=== PATIENT | female | born 1985 | race Caucasian/White ===

== ENCOUNTER 2020-08-01 08:54 | Outpatient (REF) | payer OTHER, SELFPAY | END 2020-08-01 08:55 | disposition home or self-care (01) | LOC: HO.LAB 08:54 | PROVIDERS: Visit Provider Internal Medicine | DX: Z20.822 Contact with and (suspected) exposure to COVID-19 (principal) | CPT/HCPCS: C9803; U0003; U0005 ==

== ENCOUNTER 2025-01-03 13:44 | Inpatient (IN) | payer OTHER, SELFPAY ==
--- NOTE | 2025-01-03 13:49 | ED.GENADULT ---
HPI - General Adult General Chief complaint: Psychiatric Symptoms Stated complaint: crisis Time Seen by Provider: 01/03/25 14:08 Source: patient, RN notes reviewed and old records reviewed Mode of arrival: ambulatory History of Present Illness ED Provider: Nell Schaefer PA-C HPI narrative: 39-year-old female with past medical history dementia, presenting to the ED complaining of increased depression with suicidal ideations and attempt last night. States she bought a large bottle of liquor and 100 pills of extra-strength Tylenol and was driving around with intent to overdose however fell asleep/passed out secondary to EtOH use and did not take any Tylenol. Family found patient in vehicle by using the icloud and convinced her to come to the ED. Denies any injury, HI, auditory/visual hallucinations. States she had her son prematurely last year spent a lot of time in the NICU, struggled with depression, and was having issues with her partner which prompted her to go back to work early. States she was dealing with depression, work, raising children and everything became overwhelming. Related Data Home Medications ?Medication ?Instructions ?Recorded ?Confirmed No Known Home Meds 01/03/25 01/03/25 Allergies Allergy/AdvReac Type Severity Reaction Status Date / Time morphine (MORPHINE) Allergy Mild HIVES Verified 01/03/25 13:50 Review of Systems Review of Systems: Yes all other systems are reviewed and are negative Constitutional: Constitutional: Reports as per HPI Neurologic: Denies Abnormal speech present [facility] Past Medical History Attestation statement: The following information was validated with the patient. Source: old records reviewed Social History Social History Household Members: Children Do you presently have visiting nurse or other home services: No Alcohol intake: current Alcohol type: hard liquor Patient Tobacco Use Status: Never used Tobacco Smoked in Last 30 Days: No Use of substances other than those prescribed or required for medical reasons: No Currently Displaying Signs/Symptoms of Drug Intoxication Withdrawal: No Advance Directives: No Advance Directives Information Provided: No Do you have thoughts of harming others: None Do you have a plan to hurt others: No Plan Recently lost weight without trying: No Eating poorly because of decreased appetite: Yes Nutrition Risks: No Nutritional Risk Patient : No Physical Exam ED Vital Signs: Vital Signs - 24 hr 01/03/25 13:50 01/03/25 14:00 01/03/25 21:14 Temperature 96.9 F 96.9 F 97.5 F Pulse Rate 87 85 Respiratory Rate 16 16 18 Blood Pressure 121/56 L 121/56 L 123/62 Pulse Oximetry 98 100 Oxygen Delivery Method Room Air Room Air 01/03/25 22:00 01/04/25 05:59 Temperature Pulse Rate Respiratory Rate 18 18 Blood Pressure Pulse Oximetry Oxygen Delivery Method BMI result Body Mass Index 37.7 Const General: cooperative, no acute distress, alert and awake Orientation/consciousness: patient oriented x3 Limitations: no limitations HENMT Head: Yes normal to inspection and Yes atraumatic Ears: hearing grossly normal bilaterally General nose exam: Normal external nose present Face and sinus: Yes normal facial exam Eyes General: appearance normal, both eyes and all related structures EOM: EOMs intact bilaterally Neck Neck: Yes normal visual inspection and Yes no meningeal signs Resp Effort & Inspection: normal respiratory effort and no respiratory distress Auscultation: clear to auscultation bilaterally Cardio Rate: regular rate Heart sounds: S1 normal heart sound present and S2 normal heart sound present GI Inspection: Yes normal to inspection Palpation (GI): Soft to palpation, nontender, no guarding and not rigid General: Yes no CVA tenderness Back/Spine/Pelvis Back: no CVA tenderness Skin Rashes: no rashes Wounds: no wounds Neuro General: patient oriented x3, tone normal, moves all extremities, no meningeal signs and CN's II-XI intact bilaterally Cranial nerves: Yes CN's II-XII intact bilaterally Cognition (Neuro): normal cognition Speech: No Abnormal speech present Gait exam (Neuro): Normal gait present Extrem General: Yes normal to inspection Psych Thought content: Suicidality present and Depressive thoughts present Course Course Course Narrative: Rapid medical examination performed in triage by Phoebe Chacko PA-C. Patient is a 39 year old assigned female at presenting to the emergency department after considering killing herself last night and being stopped by her family. Patient states that she is much more depressed and continues to have suicidal ideation. Detailed physical exam and review of systems are deferred to the application software engineer. android software engineer aware. -potassium mildly low at 3.2 > p.o. repletion ordered -labs otherwise reassuring. Tox screen positive for THC. Physician observation initiated at 1542 as patient needs more time to be evaluated by crisis -UA contaminated. Will wait on culture prior to initiating antibiotics. -1700--ED care transferred to [facility] pending CARE team eval Reevaluation(s) Reevaluation #1: Patient is seen with the care team and will be a bed search for inpatient psychiatric care. She is on a section 12 Time: 18:53 Reevaluation #2: Time: 06:28 Date: 01/04/25 Provider: Renny Hubbard MD Patient in physician observation for psychiatric evaluation.? No acute events reported overnight. No current complaints. VS stable.? Patient is in bed search status/pending CARE team evaluation. Will continue to monitor. Reevaluation #3: 01/04/25 1230pm. physician observation ended patient admitted inpatient. JUAN Medications Administered Generic Name Dose Route Start Last Admin Trade Name Freq PRN Reason Stop Dose Admin Folic Acid 1 mg 01/04/25 12:50 01/05/25 08:28 Folic Acid 1 Mg Tablet PO 1 mg DAILY ROMEL Administration Hydroxyzine HCl 25 mg 01/04/25 12:42 01/04/25 20:26 Hydroxyzine Hcl 25 Mg Tablet PO 25 mg Q6H PRN Administration mild anxiety Thiamine HCl 100 mg 01/04/25 12:50 01/05/25 08:28 Thiamine Hcl 100 Mg Tablet PO 100 mg DAILY ROMEL Administration Trazodone HCl 50 mg 01/04/25 12:42 01/04/25 20:25 Trazodone Hcl 50 Mg Tablet PO 50 mg BEDTIME [id number] PRN Administration Insomnia Discontinued Medications Generic Name Dose Route Start Last Admin Trade Name Freq PRN Reason Stop Dose Admin Influenza Virus Vaccine 0.5 ml 01/04/25 15:54 01/04/25 16:21 Flu Vacc [id number](6mo Up)/Pf 0.5 Ml Syringe IM 01/04/25 15:55 Not Given .ONCE ONE Potassium Chloride 40 meq 01/03/25 15:40 01/03/25 20:46 Potassium Chloride Packet 20 Meq Packet PO 01/03/25 15:41 40 meq ONCE ONE Administration Medical Decision Making Medical Decision Making MDM Narrative: 39-year-old female with past medical history dementia, presenting to the ED complaining of increased depression with suicidal ideations and attempt last night. On exam vital signs stable, NAD, nontoxic appearing, physical exam as noted above. Patient is suicidal with attempt last night. Rule out organic causes. Rule out metabolic abnormalities Plan: Labs, tox screen, CARE team consult Please refer to course for remaining clinical decision making, interpretation of labs/imaging results, and discussions with consultants and/or family members. Differential Diagnosis Differential Diagnoses: The differential diagnosis associated with the presentation includes As above Admission/Observation Consideration of admission/observation: Escalation of care including admission/observation considered Consult Healthcare Provider Management of the patient was discussed with: Behavioral Health Provider Lab Data [facility] Lab Attestation statement: I reviewed the patient's lab results. 01/03/25 14:46 01/05/25 07:47 Labs: Lab Results 01/03/25 01/03/25 Range/Units 14:28 14:46 WBC 9.5 (4.8-10.8) X10*3/uL RBC 5.32 (4.20-5.50) X10*6/uL Hgb 15.3 (12.0-16.0) g/dl Hct 46.5 (37.0-47.0) % MCV 87.4 (80.0-98.0) fL MCH 28.8 (27.0-33.0) pg MCHC 32.9 (31.0-35.0) g/dl RDW 13.4 (11.0-16.0) % Plt Count 245 (160-400) X10*3/uL MPV 10.5 (9.4-12.3) fL Immature Gran % (Auto) 0.2 (0.0-0.4) % Neut % (Auto) 63.9 (45-73) % Lymph % (Auto) 28.5 (20-40) % [place] % (Auto) 5.1 (2-11) % Eos % (Auto) 1.6 (0-4) % Baso % (Auto) 0.7 (0-2) % Lymph # (Auto) 2.7 (1.2-4.9) X10*3/uL [place] # (Auto) 0.5 (0.1-1.2) X10*3/uL Eos # (Auto) 0.2 (0.0-0.4) X10*3/uL Baso # (Auto) 0.1 (0.0-0.2) X10*3/uL Abs Immat Gran (auto) 0.02 (0.00-0.03) X10*3/uL Absolute Neuts (auto) 6.0 (2.0-8.3) x10*3/uL Absolute Nucleated RBC 0.000 (0.0-0.012) X10*3/uL Nucleated RBC % (auto) 0.0 (0.0-0.2) /100WBC Sodium 141 (135-145) mmol/L Potassium 3.2 L (3.3-5.1) mmol/L Chloride 107 (96-108) mmol/L Carbon Dioxide 25 (22-29) mmol/L Anion Gap 12 (12-20) BUN 12 (9-16) mg/dL Creatinine 0.64 (0.5-1.4) mg/dL Estim Creat Clear Calc 118.4 Estimated GFR > 60 Random Glucose 132 H (60-115) mg/dL Calcium 9.0 (8.4-10.2) mg/dL Total Bilirubin 0.7 (0.0-1.0) mg/dL AST 22 (5-31) U/L ALT 49 H (0-31) U/L Alkaline Phosphatase 31 L (39-117) U/L Total Protein 6.9 (6.5-8.0) g/dL Albumin 4.3 (3.5-5.0) g/dL Urine Color Dark Yellow Urine Appearance Cloudy Urine pH 5.5 (5.0-9.0) Ur Specific [place] >= 1.030 H (1.005-1.025) Urine Protein 30 (1+) H (Neg-Trace) mg/dL Urine Glucose (UA) Negative (Negative) mg/dL Urine Ketones Trace (Negative) mg/dL Urine Blood Negative (Negative) Urine Nitrite Negative (Negative) Ur Leukocyte Esterase Trace H (Negative) Urine RBC 3-5 H (0-2) /HPF Urine WBC 6-10 H (0-5) /HPF Ur Squamous Epith Cells >20 (0-2) /HPF Urine Bacteria 4+ (None Seen) Hyaline Casts 3-5 (0-2) /LPF Urine Test NEGATIVE (NEGATIVE) Salicylates < 5.0 L (15-30) mg/dL Urine Opiates Screen Not Detected (Not Detect) Ur Buprenorphine Scrn Not Detected (Not Detect) ng/mL Ur Oxycodone Screen Not Detected (Not Detect) ng/mL Urine Methadone Screen Not Detected (Not Detect) ng/mL Urine Fentanyl Screen Not Detected (Not Detect) Acetaminophen < 3 (<30) mcg/mL Ur Barbiturates Screen Not Detected (Not Detect) Ur Phencyclidine Scrn Not Detected (Not Detect) Ur Amphetamines Screen Not Detected (Not Detect) U Benzodiazepines Scrn Not Detected (Not Detect) Urine Cocaine Screen Not Detected (Not Detect) U Marijuana (THC) Screen POSITIVE H (Not Detect) Ethyl Alcohol < 10 mg/dL Radiology Impression Discussion of test interpretation with radiology: I have reviewed the radiologist's reading. External Record Review External record reviewed: Inpatient record, Office record, Outpatient record, Prior outpatient labs, Prior outpatient radiology, Primary care record and Outside ED record Tests considered The following testing was considered but not selected: As above Prescription Management I considered prescription management with: Other Chronic Conditions Patient?s care impacted by: Other Social Determinants Patient?s care significantly limited by Social Determinants of Health including: Problems related to primary support group and Other Social Determinant of Health Discharge Plan Discharge Clinical Impression: Suicide attempt Patient Disposition: Admitted As Inpatient Interventions: Admission Worksheet (ED) Last Done: 01/04/25 12:54 Discharge Date/Time: 01/04/25 13:51
[2025-01-03 13:50] VITALS: BP 121/56; PULSE 87; RESP 16; TEMP 36.1; O2SAT 98; BMI 37.7
[2025-01-03 14:00] VITALS: BP 121/56; RESP 16; TEMP 36.1
[2025-01-03 14:40] LABS: Appearance Urine Cloudy; Glucose Urine UA Negative (Negative); PH 5.5 (5.0-9.0); Specific Gravity - Urine >= 1.030 (1.005-1.025); UMIC TRIGGER UA YES
[2025-01-03 14:41] LABS: UPreg QC Valid YES
[2025-01-03 14:47] LABS: Cannabinoid Screen Urine POSITIVE (Not Detect)
[2025-01-03 14:51] LABS: MANUAL DIFF FLAG NO
[2025-01-03 14:53] LABS: Hematocrit 46.5 % (37.0-47.0); Hemoglobin 15.3 g/dl (12.0-16.0); Imm Gran Abs Auto 0.02 X10*3/uL (0.00-0.03); Imm Gran Pct Auto 0.2 % (0.0-0.4); Lymphocytes Absolute Auto 2.7 X10*3/uL (1.2-4.9); Mean Corpuscular HGB Conc 32.9 g/dl (31.0-35.0); Mean Corpuscular Hemoglobin 28.8 pg (27.0-33.0); Mean Corpuscular Volume 87.4 fL (80.0-98.0); NRBC Abs Auto 0.000 X10*3/uL (0.0-0.012); NRBC Pct Auto 0.0 /100WBC (0.0-0.2); Platelet Count 245 X10*3/uL (160-400); Red Blood Count 5.32 X10*6/uL (4.20-5.50); White Blood Count 9.5 X10*3/uL (4.8-10.8)
[2025-01-03 15:12] LABS: Alanine Aminotransferase 49 U/L (0-31); Albumin Level 4.3 g/dL (3.5-5.0); Alkaline Phosphatase 31 U/L (39-117); Anion Gap 12 (12-20); Aspartate Amino Transferase 22 U/L (5-31); Blood Urea Nitrogen 12 mg/dL (9-16); Calcium 9.0 mg/dL (8.4-10.2); Carbon Dioxide 25 mmol/L (22-29); Chloride 107 mmol/L (96-108); Creatinine Clr Calc Pharmacy 118.4; Estimated Glomerular Filt Rate > 60; Potassium 3.2 mmol/L (3.3-5.1); Sodium 141 mmol/L (135-145); Total Protein 6.9 g/dL (6.5-8.0)
[2025-01-03 15:46] LABS: Acetaminophen LAB < 3 mcg/mL (<30); Salicylate < 5.0 mg/dL (15-30)
--- NOTE | 2025-01-03 17:40 | MHC.CARE ---
Patient evaluated by the CARE Team, she will require an inpatient psychiatric admission. Dr. Villatoro updated
--- OUTSIDE RECORDS SUMMARY | 2025-01-03 17:55 | XMS_ITS | Clinical Summary ---
Author Organization [address] Address [address] [place] [phone] Phone Care Team Providers Care Tool Builder Name Role Phone Shayne Carbone MD Primary Care Provider [phone] Allergies Active Allergy Reactions Criticality Noted Date Comments Morphine Other 06/27/2016 Medications hydrOXYzine HCL (ATARAX) 10 mg tablet Take 1 tablet (10 mg total) by mouth. 11/26/2022 Active Active Problems Problem Noted Date Diagnosed Date Adjustment disorder with mixed anxiety and depre ssed mood 11/06/2016 Seizure disorder ([facility] V24, [facility] V28) 09/2016 Obesity (BMI 35.0-39.9 without comorbidity) 06/09 Immunizations Immunization Administration Dates Next Due DTaP (Infanrix) 6wks to less than 7yo ,09/08/1991,01/08/1989,1988,1987,1987 IHwQ-EMO-TBF (Pentacel) 2mo to less than 5yo 01/08/1989 HPV, Quadrivalent 10/07/2008,10/19/2007,10/24/19 07 Hepatitis B Pediatric (Enger ix B; Recombivax HB) to less than 20 yo 07/12/2004,01/10/2003,12/01/2002 IPV Inactivated polio (Ipol) 6wks and older 09/08/1991,01/08/1989,11/08/1988,1987,1987 Influenza Quadravalent, MDCK , 0.5ml, preservative free (Flucelvax) 6mo and older 12/31/2017 MMR, measles mumps and rubel la Live (Priorix; M-M-R II) 12mo and older 11/16/2023,09/08/1995,11/08/1988 Td Tetanus diptheria (Tdvax) 7yo and older 12/28/2003,12/01/2002 Tdap Tetanus diptheria acell ular pertussis (Boostrix; Adacel) 7yo and older 10/15/2023,06/27/2016 Surgical History Surgery Date Site/Laterality Comments TONSILLECTOMY PROCEDURE: HISTORICAL TONSILLECTOMY Medical History Medical History Date Comments Obesity (BMI 35.0-39.9 witho ut comorbidity) 06/27/2016 DX:Obesity (BMI 35.0-39.9 wi thout comorbidity) Bipolar disorder (CMS/HCC V2 4, [facility] V28) 07/14/2016 DX:Bipolar disorder (HCC) Seizure disorder (CMS/HCC V2 4, [facility] V28) 07/14/2016 DX:Seizure disorder (HCC); C OMMENT: per patient she was misdiagnosed Vasovagal syncope DX:Vasovagal s yncope Family History Medical History Relation Name Comments Breast cancer Aunt paternal Paternal Aunt, age onset 50's COPD Father Hypertension Father CAD Hypertension Maternal Grandfather CAD, di abetes Hypertension Maternal Grandmother Other: heart failure Maternal Grandmother Diabetes Mother Multiple sclerosis Mother diabetes Multiple sclerosis Other 1 age 30's in [place] Multiple sclerosis Other 2 [place] Aunt Relation Name Status Comments Aunt paternal Brother Alive x4, as of 7 1 has Bipolar/ADHD, 2 w asthma Daughter 1 Alive born 01/27/06 h ealthy Daughter 2 Alive born 04/27/11, h ealthy Father (Age 50's) Copd, sm oker Maternal Grandfather Maternal Grandmother Mother Alive diabetes, MS (m ild) as did mother's grandmother & mom's aunt Other 1 Other 2 Sister Alive x2 as of 06/2016 both asthmatic Social History Tobacco Use Types Packs/Day Years Used Date Smoking Tobacco: Never Smokeless Tobacco: Never Tobacco Cessation:Counseling Given: Not Answered Alcohol Use Standard Drinks/Week Comments Yes 0 (1 standard drink = 0.6 oz pur e alcohol) Comments Unknown Sex and Gender Information Value Date Recorded Sex Assigned at Not on file Legal Sex Female 11:35 PM EST Gender Identity Not on file Sexual Orientation Not on file Obstetrics History Last Filed Vital Signs Vital Sign Reading Time Taken Comments Blood Pressure 98/62 09/21/2024 11:23 AM EDT Pulse 84 09/21/2024 11:23 AM EDT Temperature 36.6 C (97.9 F) 09/21/2024 11:23 AM EDT Respiratory Rate - - Oxygen Saturation 98% 09/21/2024 11:23 AM EDT Inhaled Oxygen Concentration - - Weight 93.4 kg (206 lb) 11/26/2022 9:37 AM EDT Height 157.5 cm (5' 2 ) 11/26/2022 9:37 AM EDT Body Mass Index 37.68 11/26/2022 9:37 AM EDT Plan of Treatment Upcoming Encounters Date Type Department Care Team (Late st Contact Info) Description 01/12/2025 9:30 AM EST Office Visit Internal Medicine - [address] [phone] Carolyn Guadalupe, EDDY [address] [place] [id number] Health Maintenance Due Date Last Done Comments Cholesterol Screening (Lipid Panel) 02/10/2022 06/27/2016 HIV Screening 02/10/2022 Hepatitis C Screening 02/10/2022 Social Influencers of Health Screening 02/10/2022 Depression Screening 03/10/2024 Cervical Cancer Screening: Pap Smear 04/25/2024 04/25/2021 COVID-19 Vaccine ( season) 2024 01/26/2021, 05/12/2020, 03/31/2020 Influenza Vaccine (#1) 2024 12/31/2017 DTaP,Tdap,and Td Vaccines (11 - Td or Tdap) 10/14/2033 10/15/2023, 06/27/2016, 04/27/2011, Additional history exists RSV Immunization Adult Patients (1 - 1-dose 75+ series) 2062 HIB Vaccines Completed 01/08/1989 IPV Vaccines Completed 09/08/1991, 03/1988, 01/08/1989, Additional history exists Hepatitis B Vaccines Completed 07/12/2004, 01/10/2003, 12/01/2002 HPV Vaccines Completed 10/07/2008, 10/08, 10/23/2006 MMR Vaccines Completed 11/16/2023, 03/1995, 11/08/1988 Hepatitis A Vaccines Aged Out No long er eligible based on patient's age to complete this topic Meningococcal ACWY Vaccine Aged Out N o longer eligible based on patient's age to complete this topic Meningococcal B Vaccine Aged Out No l onger eligible based on patient's age to complete this topic Pneumococcal Vaccine: Pediatrics (0 to 5 Years) and At-Risk Patients (6 to 49 Years) Aged Out No longer eligible based on patient's age to complete this topic RSV Immunization Patients Under 20 months Aged Out No longer eligible based on patient's age to complete this topic Varicella Vaccines Aged Out No longer eligible based on patient's age to complete this topic Procedures Procedure Name Priority Date/Time Associated Diagnosis Comments PAP SMEAR Routine 04/25/2021 LIPID PANEL Routine 06/27/2016 from Last 3 Months or Most Recently Relevant to Health Maintenance Results * Pap smear (04/25/2021) 04/25/2021 Narrative HISTORICAL TESTING LAB RESULTING AGENCY - 05/10/2021 4:55 PM EST [id number] THINPREP PAP, IMAGED: NEGATIVE FOR SQUAMOUS INTRAEPITHELIAL LESION AND MALIGNANCY . NOTE: THE PAP TEST IS A SCREENING TEST WITH AN INHERENT FALSE NEGATIVE RATE. AUTOMATED PRESCREENING OF ALL LIQUID BASED SPECIMENS IS PERFORMED BY THE THINPREP IMAGING SYSTEM UNLESS OTHERWISE STATED. MASOOD MICHELLE(ASCP) (CASE ELECTRONICALLY SIGNED 05 10 2021) RESULT OF APTIMA HIGH RISK HPV ASSAY: HIGH RISK HPV: NEGATIVE (SEROTYPES 16,18,31,33,35,39,45,51,52,56,58,59,66,68) COMPLETED ON 2021-04-30 ADEQUACY: SATISFACTORY ENDOCERVICAL/TRANSFORMATION ZONE COMPONENT ABSENT. SOURCE: THINPREP PAP HPV ANY DX: REFLEX 16 AND 18, CERVICAL, IMAGED CLINICAL INFORMATION: HPV ANY DIAGNOSIS. HORMONES, PAP HX NEGATIVE, PATIENT HAS HAD AN IMPLANT, Z12.4 Juana Linton CNM LAB CYTOLOGY ORDERABLES Milli l Result HISTORICAL TESTING LAB RESULTING AGENCY * Lipid panel (06/27/2016) LDL/HDL Ratio 4 Triglycerides 189 mg/dL Cholesterol 191 mg/dL HDL 44 mg/dL LDL Cholesterol 110 mg/dL Blood Venous blood specimen / Unknown Historical Provider LAB BLOOD ORDERABLES Milli l Result from Last 3 Months or Most Recently Relevant to Health Maintenance Insurance [facility] [address] [place] [phone] Care Teams Tool Builder Relationship Specialty Start Date End Date Shayne Carbone MD [address] [place] [address] PCP - General Internal Medicine 12/28/20
--- OUTSIDE RECORDS SUMMARY | 2025-01-03 17:55 | XMS_ITS ---
Author Name [facility] Organization Unknown Care Team Organization Name Specialty Phone Email Start Date End Da consuelo [facility] Matilda, PROVIDER Primary Care 11/14/202210/08 [facility] Kamala Mosqueda Primary Care 07/15/202210/08
[2025-01-03] MEDS: Potassium Chloride Packet 20 MEQ PACKET 40 MEQ PO (20:46)
[2025-01-03 21:14] VITALS: BP 123/62; PULSE 85; RESP 18; TEMP 36.4; O2SAT 100
[2025-01-03 22:00] VITALS: RESP 18
--- NOTE | 2025-01-04 01:16 | PC.NURSE ---
Assumed care at approx 1845. Presents as calm and cooperative. Accepted ordered Klor-con drink for 3.2 potassium. Endorses passive SI, no plan/intent. Denies HI/AVH. Agreeable to alert staff if feeling unsafe. 15 min safety checks ongoing. Currently not scoring on CIWA. Plan of care ongoing.
[2025-01-04 05:59] VITALS: RESP 18
--- NOTE | 2025-01-04 07:05 | PC.NURSE ---
Assumed care of pt. Pt is laying down with their eyes closed, no s/s of distress. RR even and unlabored.
[2025-01-04 08:07] VITALS: BP 127/66; PULSE 60; RESP 16; TEMP 36.3; O2SAT 97
--- NOTE | 2025-01-04 09:00 | ECG_ITS ---
Test Reason : check prolonged qt Blood Pressure : */* mmHG Vent. Rate : 55 BPM Atrial Rate : 55 BPM P-R Int : 148 ms QRS Dur : 96 ms QT Int : 446 ms P-R-T Axes : 6 65 47 degrees QTcB Int : 426 ms Sinus bradycardia with sinus arrhythmia Nonspecific ST and T wave abnormality Borderline ECG No previous ECGs available Referred By: Maik Escobedo Electronically Signed By: ALVIN PANDYA
--- NOTE | 2025-01-04 11:12 | PHA.MEDREC ---
Addendum entered by Elsy Greenberg RPh 01/04/25 11:18: REVIEWED BY PHARMACIST Original Note: Pharmacy Consult ? Medication Reconciliation Pharmacy reviewed med rec done by nursing. No Known Home Meds confirmed by nurse; spoke with pt and she confirmed she is not taking any medications at this time.
--- NOTE | 2025-01-04 13:13 | PC.NURSE ---
Report called to M5 to RN. Report accepted.
[2025-01-04 14:00] VITALS: BP 127/74; PULSE 71; RESP 16; TEMP 36.3; O2SAT 98
[2025-01-04 15:10] VITALS: BMI 35.1
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
[2025-01-05 08:30] VITALS: BP 119/67; PULSE 70; RESP 16; TEMP 36.4; O2SAT 99
--- NOTE | 2025-01-05 08:44 | HO.PM.IMCN ---
History of Present Illness Data of Consult Service Date: 01/05/25 Primary Care Provider: [facility] Reason for consult: Medical consult 39-year-old female with past medical history of depression, presented to the ED reporting increased depression with suicide ideations and suicide attempt. Patient reportedly drank a bottle of liquor and bought 100 pills of extra-strength Tylenol with intent to overdose, however she fell asleep due to the alcohol and did not end up taking any Tylenol. Her family located her and she was brought to the emergency room. Notably patient has a son who was pre returned spent a lot of time in the NICU and she has had issues with depression. Her labs were notable for a low potassium, which was repleted, no leukocytosis no anemia, her tox screen was positive for THC her UA was contaminated. On exam she denies any medical concerns. Review of Systems Review of Systems: Denies any shortness of breath, chest pain, palpitations, dizziness, lightheadedness, headaches, dysuria, abdominal pain or discomfort, nausea, vomiting or diarrhea. Denies chills, body aches, muscle aches, fatigue or weight loss. [facility] Social History Household Members: Children Do you presently have visiting nurse or other home services: No Alcohol intake: current Alcohol type: hard liquor Patient Tobacco Use Status: Never used Tobacco Smoked in Last 30 Days: No Use of substances other than those prescribed or required for medical reasons: No Currently Displaying Signs/Symptoms of Drug Intoxication Withdrawal: No Advance Directives: No Advance Directives Information Provided: No Do you have thoughts of harming others: None Do you have a plan to hurt others: No Plan Recently lost weight without trying: No Eating poorly because of decreased appetite: Yes Nutrition Risks: No Nutritional Risk Patient : No Meds Allergies Allergy/AdvReac Type Severity Reaction Status Date / Time morphine (MORPHINE) Allergy Mild HIVES Verified 01/03/25 13:50 Active Medications: Current Medications Acetaminophen (Acetaminophen 325 Mg Tablet) 650 mg PO Q6H PRN PRN Reason: Headache/Pain, Scale 1-10 Al Hydroxide/Mg Hydroxide (Magnesium Hydrox/Alum Hydrox 30 Ml Oral.Susp) 30 ml PO Q6H PRN PRN Reason: Heartburn/Nausea Folic Acid (Folic Acid 1 Mg Tablet) 1 mg PO DAILY ROMEL Last Admin: 10/29/25 08:28 Dose: 1 mg Hydroxyzine HCl (Hydroxyzine Hcl 25 Mg Tablet) 25 mg PO Q6H PRN PRN Reason: mild anxiety Last Admin: 01/04/25 20:26 Dose: 25 mg Lorazepam (Lorazepam 1 Mg Tablet) 1 mg PO Q2H PRN PRN Reason: CIWA 6-10 Lorazepam (Lorazepam 1 Mg Tablet) 2 mg PO Q2H PRN PRN Reason: CIWA 11 and above Magnesium Hydroxide (Milk Of Magnesia 30 Ml Oral.Susp) 30 ml PO DAILY PRN PRN Reason: Constipation Nicotine (Nicotine 21 Mg Patch.Td24) 21 mg TRANSDERMA DAILY PRN PRN Reason: smoking cessation Nicotine Polacrilex (Nicotine Polacrilex 2 Mg Gum) 4 mg BUCCAL Q2H PRN PRN Reason: Nicotine Cravings Nicotine Polacrilex (Nicotine Polacrilex 2 Mg Gum) 4 mg BUCCAL Q2H PRN PRN Reason: nicotine cravings Olanzapine (Olanzapine 5 Mg Tablet) 5 mg PO TID PRN PRN Reason: agitation Thiamine HCl (Thiamine Hcl 100 Mg Tablet) 100 mg PO DAILY [facility] Last Admin: 01/05/25 08:28 Dose: 100 mg Trazodone HCl (Trazodone Hcl 50 Mg Tablet) 50 mg PO BEDTIME MRX1 PRN PRN Reason: Insomnia Last Admin: 01/04/25 20:25 Dose: 50 mg Home Medications ?Medication ?Instructions ?Recorded ?Confirmed ?Last Taken ?Type No Known Home Meds 01/03/25 01/03/25 Unknown History Physical Exam Vital Signs and Narrative: Vital Signs: Last Vital Signs Temp 97.6 F 01/05/25 08:30 Pulse 70 01/05/25 08:30 Resp 16 01/05/25 08:30 BP 119/67 01/05/25 08:30 Pulse Ox 99 01/05/25 08:30 O2 Del Method Room Air 01/05/25 08:30 BMI result Body Mass Index 35.1 Alert and oriented X3, clam and cooperative. Answers questions. Neuro: CN II-X11 intact, no deficits, visual acuity intact EYES: PERRLA, EOM intact ENT: Hearing intact, MMM Cardiac: S1 S2 RRR, No ectopy Pulmonary: lungs clear to auscultation, No increased WOB. Abdominal: BS active in all 4 quadrants, no guarding or tenderness MSK: Strength 5/5 upper and lower extremities : Deferred Extremities: No edema in lower extremities Psych: Mood stable, Quiet and cooperative. Visiting with family Skin: Warm and dry, Intact Results Labs 01/03/25 14:46 01/05/25 07:47 Labs: Laboratory Results - last 24 hr 01/05/25 07:47 Estimat Average Glucose 111 Hemoglobin A1c % 5.5 Assessment and Plan (1) Depression: Status: Acute Plan 39-year-old female presents to the ED with increased depression and suicide attempt, she did not complete this due to passing out from alcohol. She is admitted for inpatient psych for stabilization. Depression/suicidal ideation Treatment per psychiatric team Abnormal lipid panel Follow up with primary care doctor Lifestyle changes including diet and exercise Thank you for allowing me to participate in the care of this patient. Will follow with you, please notify medical provider with any changes in condition or concerns.
[2025-01-05 08:47] LABS: Alanine Aminotransferase 38 U/L (0-31); Albumin Level 4.0 g/dL (3.5-5.0); Alkaline Phosphatase 19 U/L (39-117); Anion Gap 10 (12-20); Aspartate Amino Transferase 22 U/L (5-31); Blood Urea Nitrogen 10 mg/dL (9-16); Calcium 9.2 mg/dL (8.4-10.2); Carbon Dioxide 28 mmol/L (22-29); Chloride 109 mmol/L (96-108); Cholesterol 169 mg/dL (<200); Creatinine Clr Calc Pharmacy 112.7; Estimated Glomerular Filt Rate > 60; HDL Cholesterol 36 mg/dL (>40); Potassium 4.3 mmol/L (3.3-5.1); Sodium 143 mmol/L (135-145); Total Protein 6.3 g/dL (6.5-8.0); Triglycerides 253 mg/dL (<150)
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
[2025-01-05 15:13] VITALS: BP 137/62
[2025-01-05 20:00] VITALS: BP 103/57; PULSE 69; RESP 16; TEMP 36.4; O2SAT 99
[2025-01-05 21:45] VITALS: BP 96/58
[2025-01-06 07:00] VITALS: BMI 35.3
[2025-01-06 08:00] VITALS: BP 97/55; PULSE 53; RESP 18; TEMP 36.4; O2SAT 100
[2025-01-06 20:00] VITALS: BP 108/58; PULSE 61; RESP 16; TEMP 36.8; O2SAT 99
[2025-01-06 21:02] VITALS: BP 108/58
[2025-01-07 08:09] VITALS: BP 95/51; PULSE 54; TEMP 36.5; O2SAT 99
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
[2025-01-07 10:49] VITALS: BP 110/67
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
[2025-01-07 20:00] VITALS: BP 100/61; PULSE 57; RESP 17; TEMP 36.2; O2SAT 97
[2025-01-08 08:00] VITALS: BP 91/54; PULSE 50; TEMP 36.4; O2SAT 97
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
[2025-01-08 20:00] VITALS: BP 107/60; PULSE 58; RESP 18; TEMP 36.8; O2SAT 96
[2025-01-09 08:23] VITALS: BP 108/53; PULSE 58; TEMP 36.2; O2SAT 96
[2025-01-09 20:00] VITALS: BP 119/55; PULSE 70; TEMP 36.6; O2SAT 98
[2025-01-09 21:46] VITALS: BP 119/55
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
[2025-01-10 08:00] VITALS: BP 110/56; PULSE 58; TEMP 36.9; O2SAT 98
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
[2025-01-10 20:00] VITALS: BP 128/62; PULSE 80; TEMP 36.4; O2SAT 96
[2025-01-11 08:00] VITALS: BP 113/67; PULSE 66; TEMP 36.3; O2SAT 99
--- NOTE | 2025-01-11 09:26 | PM.PSYDC ---
DS: Providers Provider Date of Service: 01/11/25 Date of admission: 01/04/25 12:42 Date of discharge: 01/11/25 [facility] on [facility]: Ashish Johnson Attending physician on discharge: Ashish Johnson DS: Diagnosis Discharge Diagnosis (1) MDD (major depressive disorder), recurrent severe, without psychosis: Status: Acute (2) PTSD (post-traumatic stress disorder): Status: Acute DS: Medications Discharge Medications Home Medications: Previous Rx's ?Medication ?Instructions ?Recorded sertraline 100 mg tablet 100 mg PO DAILY 30 days #30 tabs 01/10/25 clonidine HCl 0.1 mg tablet See Rx Instructions .Route 01/11/25 .COMPLEX moderate anxiety 30 days #60 tabs hydroxyzine HCl 25 mg tablet 25 mg PO Q6H PRN mild anxiety 30 01/11/25 days #60 tabs trazodone 50 mg tablet 50 mg PO BEDTIME PRN Insomnia 30 01/11/25 days #30 tabs Data Data Completed and Pending Completed studies during hospitalization [Text1]: 01/05/25 07:47 Sodium 143 Potassium 4.3 D Chloride 109 H Carbon Dioxide 28 Anion Gap 10 L BUN 10 Creatinine 0.70 Estim Creat Clear Calc 112.7 Estimated GFR > 60 Random Glucose 96 Estimat Average Glucose 111 Hemoglobin A1c % 5.5 Calcium 9.2 Total Bilirubin 0.5 AST 22 ALT 38 H Alkaline Phosphatase 19 L Total Protein 6.3 L Albumin 4.0 Triglycerides 253 H Cholesterol 169 LDL Cholesterol, Calc 83 HDL Cholesterol 36 L TSH 1.22 DS: Summary Time Spent with Patient Time attestation: Total time managing care of this patient today ____ minutes. Discharge Plan Discharge Anticipated Discharge Date/Time: 01/11/25 11:00 Patient Disposition: Home, Self-Care Discharge Diagnosis: MDD, recurrent, severe without psychosis in partial remission Referrals: [facility] Therapy Intake with Josue Booker [Other] - 01/12/25 1:00 pm Referral Note: The therapist will make the referral to psychiatry. Please let him know you will be needing a medication management appointment as soon as possible. There will be a $20 co-pay. They asked that you arrive 10 to 15 minutes early to fill out paperwork. [facility] [Other] - 1 Week Referral Note: When you are ready please review the hand outs in your discharge packet and reach out to them if you think this would be helpful for you. ,[facility] [Primary Care Provider, Primary Care] - 1 Week Referral Note: Pt reports PCP appointment on 01/12/25 at 9:30 am. Discharge Medications: New sertraline 100 mg tablet 100 mg PO DAILY 30 Days Qty: 30 0RF clonidine HCl 0.1 mg Tablet See Rx Instructions .ROUTE .COMPLEX 30 Days Qty: 60 1RF Protocol: Hold for SBP< HOLD for SBP < : 90 Rx Instructions: Take 1 at bedtime; may take one tab during the day as needed for moderate anxiety hydroxyzine HCl 25 mg Tablet 25 mg PO Q6H PRN (Reason: mild anxiety) 30 Days Qty: 60 1RF trazodone 50 mg Tablet 50 mg PO BEDTIME PRN (Reason: Insomnia) 30 Days Qty: 30 1RF Discharge Orders: Discharge Order (Routine); Ordered 01/11/25 Ordered By: Ashish Johnson Diet: Regular diet Activity on Discharge: As tolerated Stand Alone Forms: Patient Portal Discharge page Print Language: Czech Care Plan Goals: Maintain mood and safe behaviors Take medications as prescribed Continue to pursue sobriety Practice coping skills Continue with outpatient providers and reach out to them as needed Health Concerns: Mood stability and behaviors Bruxism Plan of Treatment: Follow up with your PCP, psychiatric provider and other outpatient providers regarding above concerns Take medications as prescribed Assessment: Risk assessment at time of discharge:? Patient was interviewed prior to discharge and found to be fully oriented and without any SI or HI. Patient has improved insight and judgment and wants to continue treatment. Patient is not in imminent risk of harm to self or others and has a safety plan that includes presenting to the closest ER or calling 911 if feeling unsafe.? Patient has been observed closely by nursing and unit staff throughout admission; patient has not engaged in any behaviors that suggest dangerousness to self or others and has demonstrated appropriate behaviors and impulse control
== END 2025-01-11 11:01 | disposition home or self-care (01) | DRG 751 ==
LOC: HO.ED 01-04 12:54 → HO.PM5 01-04 13:10
PROVIDERS: Physician Assistant Medical; Admitting Provider Psychiatry & Neurology Psychiatry; Emergency Provider Emergency Medicine; Visit Provider Psychiatry & Neurology Psychiatry
DX: F33.2 Major depressive disorder, recurrent severe without psychotic features (principal); F03.90 Unspecified dementia, unspecified severity, without behavioral disturbance, psychotic disturbance, mood disturbance, and anxiety; R45.851 Suicidal ideations; F43.10 Post-traumatic stress disorder, unspecified; Z79.899 Other long term (current) drug therapy
CPT/HCPCS: 36415; 80053; 80061; 80143; 80179; 80307; 81001; 81025; 83036; 84443; 85025; 93005; 99285; S9485

== ENCOUNTER → 2025-01-04 09:00 | Outpatient (BNV) | payer OTHER, SELFPAY | PROVIDERS: Admitting Provider Psychiatry & Neurology Psychiatry; Emergency Provider Emergency Medicine; Visit Provider Internal Medicine | DX: R00.1 Bradycardia, unspecified (principal) | CPT/HCPCS: 93010 ==

== ENCOUNTER → 2025-01-04 12:42 | Outpatient (BNV) | payer OTHER, SELFPAY | PROVIDERS: Admitting Provider Psychiatry & Neurology Psychiatry; Emergency Provider Emergency Medicine; Visit Provider Psychiatry & Neurology Psychiatry | DX: F33.2 Major depressive disorder, recurrent severe without psychotic features (principal); F43.11 Post-traumatic stress disorder, acute | CPT/HCPCS: 99232 ==

== ENCOUNTER → 2025-01-04 12:42 | Outpatient (BNV) | payer OTHER, SELFPAY | PROVIDERS: Admitting Provider Psychiatry & Neurology Psychiatry; Emergency Provider Emergency Medicine; Visit Provider Nurse Practitioner Family | DX: F32.A Depression, unspecified (principal) | CPT/HCPCS: 99221 ==